=== PATIENT | male | born 1990 | race Caucasian/White ===

== ENCOUNTER 2021-10-12 08:54 | Emergency (ER) | payer OTHER, SELFPAY ==
[2021-10-12 09:02] VITALS: BP 137/94; PULSE 73; RESP 16; TEMP 36.6; O2SAT 100
--- NOTE | 2021-10-12 09:14 | ED.SKABFB ---
HPI - Skin/Abscess/Foreign Bdy General Chief complaint: Skin/Abscess/Foreign Body <Viktoria Thompson PA-C - Last Filed: 10/12/21 10:25> Stated complaint: face injury <FARNAZ Lopez Last Filed: 10/12/21 10:25> Time Seen by Provider: 10/12/21 09:02 <FARNAZ Lopez Last Filed: 10/12/21 10:25> Source: patient <FARNAZ Lopez Last Filed: 10/12/21 10:25> Mode of arrival: ambulatory <FARNAZ Lopez Last Filed: 10/12/21 10:25> Limitations: no limitations <FARNAZ Lopez Last Filed: 10/12/21 10:25> History of Present Illness HPI narrative: This is a 30-year-old male who presents the ED with complaints of a plastic 6mm BB being embedded in his left jawline. Patient reports he was playing [employer] last Thursday, 09/29, when he was hit with a BB in his left jawline causing a break in his skin. Patient presents today with a scab over his left jawline and states he can feel the BB underneath. Patient denies any symptoms, dysphagia, pain, redness, swelling, drainage, fever, chills. <FARNAZ Lopez Last Filed: 10/12/21 10:25> Related Data Home medications: Home Medications Medication Instructions Recorded Confirmed omeprazole 10/12/21 <FARNAZ Lopez Last Filed: 10/12/21 10:25> Allergies/Adverse reactions: Allergies Allergy/AdvReac Type Severity Reaction Status Date / Time shellfish derived Allergy Gastrointestinal Verified 10/12/21 09:06 Upset <FARNAZ Lopez Last Filed: 10/12/21 10:25> Review of Systems Review of Systems: CONSTITUTIONAL: Denies fever, chills, or sweats. ENT: Denies sore throat or dysphagia. GASTROINTESTINAL: Denies nausea, vomiting, or diarrhea. SKIN: Reports abrasion/scab to L jawline with FB under scab. Denies redness, swelling, rash, drainage, or itching. MUSCULOSKELETAL: Denies neck pain. NEUROLOGIC: Denies headache, numbness, or weakness. <Viktoria Thompson PA-C - Last Filed: 10/12/21 10:25> All systems reviewed & are unremarkable except as noted in HPI and below <Viktoria Thompson PA-C - Last Filed: 10/12/21 10:25> PMFSH Past Medical History Medical History: Medical History (Updated 10/12/21 @ 09:55 by Viktoria Thompson PA-C) GERD (gastroesophageal reflux disease) <Viktoria Thompson PA-C - Last Filed: 10/12/21 10:25> Surgical History Surgical History: Surgical History (Updated 10/12/21 @ 09:17 by Viktoria Thompson PA-C) No significant past surgical history <Viktoria Thompson PA-C - Last Filed: 10/12/21 10:25> Social History Social History: Social History (Updated 10/12/21 @ 09:18 by Viktoria Thompson PA-C) Smoking status: Never smoker <Viktoria Thompson PA-C - Last Filed: 10/12/21 10:25> Exam Narrative: APPEARANCE: Well appearing, no pain in distress, well-nourished. HEAD: Normocephalic, atraumatic. EYES: EOMI, conjunctivae clear. NOSE: Normal, no drainage. NECK: Supple. No adenopathy. 0.5cm circular scabbed region along left anterolateral mandible body with palpable bead-like FB directly underneath scab. No erythema, warmth, swelling surrounding scabbed region. RESPIRATORY: Airway patent, respirations nonlabored. Clear to auscultation bilaterally, no rales, rhonchi, wheezing. CARDIOVASCULAR: Regular rate and rhythm without murmurs rubs or gallops. MUSCULOSKELETAL: Moves all extremities. NEURO: A&O X3. Cranial nerves II - XII grossly intact. Good gait. Good coordination SKIN:: Warm, dry. Normal Color PSYCHIATRIC: Normal affect/mood, normal interaction. <Viktoria Thompson PA-C - Last Filed: 10/12/21 10:25> Course [employer] ARCHITECT/PA Physician Supervision I did not see this patient nor was the care plan discussed with me. I was available for evaluation and consultation, I agree with the documentation <Gamaliel Gonzales MD - Last Filed: 10/12/21 10:54> Vital Signs Vital signs: Vital Signs Temperature 36.6 C 10/12/21 09:02 Pulse Rate 73 10/12/21 09:02 Res
[2021-10-12] MEDS: TETANUS,DIPHTHERIA,AC PERTUSSIS ADULT (0.5 ML) BOOSTRIX IM (09:58)
== END 2021-10-12 10:25 | disposition home or self-care (01) ==
LOC: ANHED 10:18
PROVIDERS: Emergency Provider Emergency Medicine; PCP Nurse Practitioner
DX: S00.85XA Superficial foreign body of other part of head, initial encounter (principal); Z23 Encounter for immunization; K21.9 Gastro-esophageal reflux disease without esophagitis; W45.8XXA Other foreign body or object entering through skin, initial encounter; W34.010A Accidental discharge of airgun, initial encounter
CPT/HCPCS: 10120; 90471; 90715; 99283